=== PATIENT | female | born 1960 ===

== ENCOUNTER → 2019-02-17 | Emergency (ER) | payer OTHER ==
[~2019-02-17] VITALS: Ht 160 cm; Wt 86.2 kg
[~2019-02-17] MED LIST: COUMADIN1 MG; COUMADIN5 MG PO; LOSARTAN-HCTZ1 EACH PO; NORVASC5 MG PO; ZOCOR20 MG PO
== END | disposition designated cancer center or children's hospital (05) ==
LOC: ER 09:23
DX: G44.221 Chronic tension-type headache, intractable (principal); R11.11 Vomiting without nausea; R42 Dizziness and giddiness